=== PATIENT | female | born 1965 | race Caucasian/White ===

== ENCOUNTER → 2016-12-24 | Outpatient (CLI) | payer BC ==
[~2016-12-24] MED LIST: AMOXIL500 M1 PO; CATAFLAM50 MG PO; FLEXERIL5 MG PO; FLOMAX0.4 MG PO; HYDROCODONE BIT1 T11 PO; MOTRIN800 MG PO; PRILOSEC20 MG PO; PYRIDIUM200 MG PO; SYNTHROID,LEV150 MCG PO; VICODIN 5/500 505 MG PO
[2016-12-24 19:42] LABS: BASO # 0.1 10*3/uL (0.0-0.1); EOS # 0.2 10*3/uL (0.0-0.4); EOS % 3.7 % (1.0-4.0); HEMATOCRIT 32.4 % (37.0-47.0); HEMOGLOBIN 9.4 g/dl (12.0-16.0); LYMPH # 1.4 10*3/uL (1.3-4.4); LYMPH % 29.2 % (27.0-41.0); MEAN CELL VOLUME 89.8 fl (81.0-99.0); MEAN PLATELET VOLUME 10.6 fl (9.6-12.3); MONO # 0.4 10*3/uL (0.1-1.0); MONO % 8.6 % (3.0-9.0); NEUT # 2.8 10*3/uL (2.3-7.9); NEUT % 57.3 % (47.0-73.0); PLATELET COUNT AUTOMATED 278 10*3/uL (130-400); RED BLOOD COUNT 3.61 10*6/uL (4.10-5.10); RED CELL DISTRI WIDTH 13.7 % (0-14.5); WHITE BLOOD COUNT 4.9 10*3/uL (4.8-10.8)
[2016-12-24 20:03] LABS: ALBUMIN 3.8 gm/dl (3.1-4.5); ALKALINE PHOSPHATASE 50 U/L (45-117); BILIRUBIN, TOTAL 0.2 mg/dl (0.2-1.0); BUN 14 mg/dl (7-24); CARBON DIOXIDE 31 mmol/L (21-32); CHLORIDE 108 mmol/L (98-107); EST GLOM FILT AFRICAN AMERICAN > 60 ml/min; GLUCOSE 103 mg/dL (65-99); IRON 21 ug/dL (50-170); IRON SATURATION 5 %; POTASSIUM 4.3 mmol/L (3.5-5.1); SGOT/AST 11 IU/L (3-35); SGPT/ALT 10 U/L (12-78); SODIUM 143 mmol/L (136-145); TOTAL PROTEIN 7.5 gm/dL (6.4-8.2); UIBC 388 ug/dL (110-365)
[2016-12-24 20:19] LABS: FERRITIN 2.9 ng/mL (10.0-291.0)
== END | disposition home or self-care (01) ==
LOC: LAB 17:54
PROVIDERS: Family Medicine
DX: D64.9 Anemia, unspecified (principal); E03.9 Hypothyroidism, unspecified; E61.1 Iron deficiency

== ENCOUNTER → 2017-01-11 | Outpatient (CLI) | payer BC | END | disposition home or self-care (01) | LOC: MAMMO 13:46 | DX: Z12.31 Encounter for screening mammogram for malignant neoplasm of breast (principal) ==

== ENCOUNTER → 2019-11-30 | Outpatient (CLI) | payer SELFPAY | END | disposition home or self-care (01) | LOC: LAB 09:22 → RESCLI 09:22 | DX: U07.1 COVID-19 (principal); J32.9 Chronic sinusitis, unspecified ==

== ENCOUNTER 2020-03-04 19:24 | Emergency (ER) | payer OTHER ==
[~2020-03-04] VITALS: Wt 68.0 kg
[2020-03-04 21:17] VITALS: BP 124/77
== END 2020-03-05 00:38 | disposition home or self-care (01) ==
LOC: ED 19:24
DX: S82.434A Nondisplaced oblique fracture of shaft of right fibula, initial encounter for closed fracture (principal); Z88.8 Allergy status to other drugs, medicaments and biological substances; Z79.899 Other long term (current) drug therapy; X50.1XXA Overexertion from prolonged static or awkward postures, initial encounter; Y93.89 Activity, other specified; Y92.89 Other specified places as the place of occurrence of the external cause; Y99.8 Other external cause status

== ENCOUNTER → 2020-03-10 | Outpatient (CLI) | payer OTHER | END | disposition home or self-care (01) | LOC: CT 14:00 | DX: M76.61 Achilles tendinitis, right leg (principal); R60.0 Localized edema ==

== ENCOUNTER → 2020-04-14 | Outpatient (CLI) | payer OTHER | END | disposition home or self-care (01) | LOC: MRI 13:00 | DX: S96.811A Strain of other specified muscles and tendons at ankle and foot level, right foot, initial encounter (principal); M25.371 Other instability, right ankle; M71.571 Other bursitis, not elsewhere classified, right ankle and foot; X58.XXXA Exposure to other specified factors, initial encounter; Y93.89 Activity, other specified; Y92.89 Other specified places as the place of occurrence of the external cause; Y99.8 Other external cause status ==

== ENCOUNTER → 2020-09-10 | Outpatient (CLI) | payer OTHER ==
[~2020-09-10] MED LIST changes: +COLACE100 MG PO; +MIGRANOW KIT50 MG PO; +PERCOCET 5-3251 EACH PO; +ZOFRAN4 MG PO
[2020-09-10 13:24] LABS: EOS # 0.2 10*3/uL (0.0-0.4); EOS % 3.6 % (1.0-4.0); HEMATOCRIT 38.9 % (37.0-47.0); LYMPH # 1.3 10*3/uL (1.3-4.4); LYMPH % 31.4 % (27.0-41.0); MEAN CELL VOLUME 94.6 fl (81.0-99.0); MEAN CORPUSCULAR HGB 29.9 pg (27.0-31.0); MEAN CORPUSCULAR HGB CONC 31.6 g/dl (33.0-37.0); MEAN PLATELET VOLUME 10.1 fl (9.6-12.3); MONO # 0.4 10*3/uL (0.1-1.0); MONO % 9.7 % (3.0-9.0); NEUT # 2.2 10*3/uL (2.3-7.9); NEUT % 53.8 % (47.0-73.0); PLATELET COUNT AUTOMATED 172 10*3/uL (130-400); RED BLOOD COUNT 4.11 10*6/uL (4.10-5.10); RED CELL DISTRI WIDTH 11.9 % (0-14.5); WHITE BLOOD COUNT 4.1 10*3/uL (4.8-10.8)
[2020-09-10 14:02] LABS: ALBUMIN 3.7 gm/dl (3.1-4.5); ALKALINE PHOSPHATASE 55 U/L (45-117); BUN 15 mg/dl (7-24); CHLORIDE 109 mmol/L (98-107); CHOLESTEROL 203 mg/dL (<200); CREATININE 0.63 mg/dL (0.55-1.02); HDL CHOLESTEROL 73 mg/dl (40-60); IRON 78 ug/dL (50-170); LDL CHOLESTEROL 116 mg/dL (9-159); POTASSIUM 4.1 mmol/L (3.5-5.1); SGOT/AST 12 IU/L (3-35); SGPT/ALT 16 U/L (12-78); SODIUM 142 mmol/L (136-145); TOTAL IRON BINDING CAPACITY 369 ug/dl (250-450); TOTAL PROTEIN 7.5 gm/dL (6.4-8.2); TRIGLYCERIDES 71 mg/dl (<150); VLDL CHOLESTEROL 14 mg/dL (6-40)
[2020-09-10 14:21] LABS: FREE T4 1.49 ng/dl (0.76-1.46)
[2020-09-10 14:34] LABS: FERRITIN 9.2 ng/mL (10.0-291.0); VITAMIN D, 25-HYDROXY 16.6 ng/mL (30-100)
== END | disposition home or self-care (01) ==
LOC: LAB 13:07
PROVIDERS: ATTEND Family Medicine
DX: Z13.220 Encounter for screening for lipoid disorders (principal); E03.9 Hypothyroidism, unspecified; E53.8 Deficiency of other specified B group vitamins; E55.9 Vitamin D deficiency, unspecified; E61.1 Iron deficiency; G47.30 Sleep apnea, unspecified; Z13.1 Encounter for screening for diabetes mellitus

== ENCOUNTER → 2020-09-25 | Outpatient (CLI) | payer OTHER | END | disposition home or self-care (01) | LOC: MAMMO 01:31 | PROVIDERS: ATTEND Family Medicine | DX: Z12.31 Encounter for screening mammogram for malignant neoplasm of breast (principal); R92.8 Other abnormal and inconclusive findings on diagnostic imaging of breast ==

== ENCOUNTER → 2020-11-03 | Outpatient (CLI) | payer OTHER | END | disposition home or self-care (01) | LOC: COVID19 14:45 | PROVIDERS: ATTEND Surgery | DX: Z01.812 Encounter for preprocedural laboratory examination (principal); Z20.822 Contact with and (suspected) exposure to COVID-19 ==

== ENCOUNTER → 2020-11-07 | Day surgery (SDC) | payer OTHER ==
[2020-11-03 14:03] VITALS: BP 105/61
[~2020-11-07] VITALS: Ht 157.4 cm; Wt 72.6 kg
[2020-11-07 07:15] VITALS: BP 112/70
[2020-11-07 09:07] VITALS: BP 136/65
[2020-11-07 09:22] VITALS: BP 134/62
[2020-11-07 09:37] VITALS: BP 147/66
[2020-11-07 09:52] VITALS: BP 118/37
[2020-11-07 10:07] VITALS: BP 114/62
== END ==
LOC: SDC 11-03 14:00
PROVIDERS: ATTEND Surgery
DX: K43.2 Incisional hernia without obstruction or gangrene (principal); G43.909 Migraine, unspecified, not intractable, without status migrainosus; Z79.899 Other long term (current) drug therapy

== ENCOUNTER → 2020-11-19 | Outpatient (CLI) | payer OTHER | END | disposition home or self-care (01) | LOC: CT 14:24 | PROVIDERS: ATTEND Surgery | DX: N20.0 Calculus of kidney (principal); K44.9 Diaphragmatic hernia without obstruction or gangrene; R18.8 Other ascites; Z98.890 Other specified postprocedural states ==

== ENCOUNTER → 2021-02-10 | Outpatient (CLI) | payer OTHER | END | disposition home or self-care (01) | LOC: LAB 12:00 | PROVIDERS: ATTEND Family Medicine | DX: E03.9 Hypothyroidism, unspecified (principal) ==

== ENCOUNTER 2021-12-02 22:24 | Emergency (ER) | payer OTHER ==
[~2021-12-02] VITALS: Ht 157.4 cm; Wt 72.6 kg
[2021-12-02 23:08] LABS: BILIRUBIN Negative (Negative); BLOOD 3+ (Negative); CLARITY Cloudy (Clear); COLOR Orange (Yellow); GLUCOSE Negative (Negative); KETONE Trace (Negative); LEUKO ESTERASE 1+ (Negative); NITRITE Negative (Negative); PH 5.5 (4.5-8.0)
[2021-12-02 23:15] LABS: BASO % 0.7 % (0.0-1.0); EOS # 0.1 10*3/uL (0.0-0.4); EOS % 1.9 % (1.0-4.0); HEMATOCRIT 39.4 % (37.0-47.0); LYMPH # 1.5 10*3/uL (1.3-4.4); LYMPH % 25.5 % (27.0-41.0); MEAN CELL VOLUME 92.3 fl (81.0-99.0); MEAN CORPUSCULAR HGB CONC 32.5 g/dl (33.0-37.0); MEAN PLATELET VOLUME 9.9 fl (9.6-12.3); MONO # 0.5 10*3/uL (0.1-1.0); NEUT # 3.6 10*3/uL (2.3-7.9); NEUT % 62.7 % (47.0-73.0); PLATELET COUNT AUTOMATED 227 10*3/uL (130-400); RED BLOOD COUNT 4.27 10*6/uL (4.10-5.10); RED CELL DISTRI WIDTH 11.9 % (0-14.5); WHITE BLOOD COUNT 5.7 10*3/uL (4.8-10.8)
[2021-12-02 23:35] LABS: ALKALINE PHOSPHATASE 58 U/L (45-117); BUN 15 mg/dl (7-24); CHLORIDE 108 mmol/L (98-107); CREATININE 0.77 mg/dL (0.55-1.02); LIPASE 121 U/L (73-393); POTASSIUM 3.6 mmol/L (3.5-5.1); SGOT/AST 15 IU/L (3-35); SGPT/ALT 16 U/L (12-78); SODIUM 142 mmol/L (136-145); TOTAL PROTEIN 7.5 gm/dL (6.4-8.2)
[2021-12-02 23:39] LABS: BACTERIA TRACE; RBC TNTC rbc/hpf (0-2); WBC 16-20 wbc/hpf (0-5)
[2021-12-03 05:28] VITALS: BP 105/54
== END 2021-12-03 08:00 | disposition short-term general hospital (02) ==
LOC: ED 22:24
PROVIDERS: Emergency Medicine
DX: N39.0 Urinary tract infection, site not specified (principal); N13.2 Hydronephrosis with renal and ureteral calculous obstruction; Z88.8 Allergy status to other drugs, medicaments and biological substances; Z79.899 Other long term (current) drug therapy; Z90.89 Acquired absence of other organs

== ENCOUNTER → 2021-12-28 | Outpatient (CLI) | payer OTHER ==
[2021-12-28 18:55] LABS: BASO % 0.8 % (0.0-1.0); EOS # 0.2 10*3/uL (0.0-0.4); EOS % 3.1 % (1.0-4.0); HEMATOCRIT 39.2 % (37.0-47.0); LYMPH # 1.7 10*3/uL (1.3-4.4); LYMPH % 35.7 % (27.0-41.0); MEAN CELL VOLUME 93.8 fl (81.0-99.0); MEAN CORPUSCULAR HGB 29.9 pg (27.0-31.0); MEAN CORPUSCULAR HGB CONC 31.9 g/dl (33.0-37.0); MEAN PLATELET VOLUME 9.6 fl (9.6-12.3); MONO # 0.4 10*3/uL (0.1-1.0); MONO % 8.1 % (3.0-9.0); NEUT # 2.5 10*3/uL (2.3-7.9); NEUT % 52.1 % (47.0-73.0); PLATELET COUNT AUTOMATED 203 10*3/uL (130-400); RED BLOOD COUNT 4.18 10*6/uL (4.10-5.10); WHITE BLOOD COUNT 4.8 10*3/uL (4.8-10.8)
[2021-12-28 19:13] LABS: ALKALINE PHOSPHATASE 58 U/L (45-117); BUN 14 mg/dl (7-24); CHLORIDE 106 mmol/L (98-107); CREATININE 0.67 mg/dL (0.55-1.02); POTASSIUM 4.2 mmol/L (3.5-5.1); SGOT/AST 10 IU/L (3-35); SGPT/ALT 9 U/L (12-78); SODIUM 141 mmol/L (136-145); THYROXINE (T4) TOTAL 16.1 ug/dl (4.8-13.9); TOTAL PROTEIN 7.6 gm/dL (6.4-8.2)
[2021-12-28 19:16] LABS: T3 UPTAKE 36 % (31-39)
[2021-12-28 20:46] LABS: BILIRUBIN Negative (Negative); BLOOD 2+ (Negative); CLARITY Clear (Clear); COLOR Yellow (Yellow); GLUCOSE Negative (Negative); KETONE Trace (Negative); LEUKO ESTERASE Trace (Negative); NITRITE Negative (Negative); SPECIFIC GRAVITY 1.025 (1.001-1.030)
[2021-12-28 21:22] LABS: BACTERIA 1+; CALCIUM OXALATE CRYSTALS 2+; EPITHELIAL CELLS 21-30; MUCOUS TRACE
== END | disposition home or self-care (01) ==
LOC: LAB 17:05
PROVIDERS: ATTEND Urology
DX: N20.0 Calculus of kidney (principal); R31.9 Hematuria, unspecified

== ENCOUNTER → 2021-12-31 | Outpatient (CLI) | payer OTHER | END | disposition home or self-care (01) | LOC: LAB 18:32 | PROVIDERS: ATTEND Family Medicine | DX: E03.9 Hypothyroidism, unspecified (principal) ==

== ENCOUNTER → 2022-01-07 | Outpatient (CLI) | payer OTHER | LOC: US 01:08 | PROVIDERS: ATTEND Urology | DX: N20.0 Calculus of kidney (principal); K80.20 Calculus of gallbladder without cholecystitis without obstruction ==

== ENCOUNTER → 2022-07-28 | Outpatient (CLI) | payer OTHER | END | disposition home or self-care (01) | LOC: MAMMO 01:17 | PROVIDERS: ATTEND Family Medicine | DX: Z12.31 Encounter for screening mammogram for malignant neoplasm of breast (principal) ==

== ENCOUNTER → 2022-10-19 | Outpatient (CLI) | payer OTHER | END | disposition home or self-care (01) | LOC: LAB 10:39 | PROVIDERS: ATTEND Family Medicine | DX: E03.9 Hypothyroidism, unspecified (principal) ==

== ENCOUNTER 2023-01-10 14:27 | Emergency (ER) | payer OTHER ==
[~2023-01-10] VITALS: Ht 160 cm; Wt 72.6 kg
[2023-01-10 14:36] VITALS: BP 128/65
[2023-01-10 16:09] LABS: BASO % 0.7 % (0.0-1.0); EOS # 0.1 10*3/uL (0.0-0.4); HEMATOCRIT 39.8 % (37.0-47.0); LYMPH # 1.5 10*3/uL (1.3-4.4); LYMPH % 33.9 % (27.0-41.0); MEAN CELL VOLUME 93.6 fl (81.0-99.0); MEAN CORPUSCULAR HGB 31.1 pg (27.0-31.0); MEAN CORPUSCULAR HGB CONC 33.2 g/dl (33.0-37.0); MEAN PLATELET VOLUME 9.8 fl (9.6-12.3); MONO # 0.4 10*3/uL (0.1-1.0); MONO % 9.4 % (3.0-9.0); NEUT # 2.4 10*3/uL (2.3-7.9); NEUT % 53.8 % (47.0-73.0); PLATELET COUNT AUTOMATED 181 10*3/uL (130-400); RED BLOOD COUNT 4.25 10*6/uL (4.10-5.10); RED CELL DISTRI WIDTH 11.9 % (0-14.5); WHITE BLOOD COUNT 4.5 10*3/uL (4.8-10.8)
[2023-01-10 16:17] LABS: BILIRUBIN Negative (Negative); BLOOD 1+ (Negative); CLARITY Cloudy (Clear); COLOR Yellow (Yellow); GLUCOSE Negative (Negative); KETONE 1+ (Negative); LEUKO ESTERASE 1+ (Negative); NITRITE Negative (Negative); SPECIFIC GRAVITY >= 1.030 (1.001-1.030)
[2023-01-10 16:31] LABS: ALKALINE PHOSPHATASE 61 U/L (46-116); BUN 15 mg/dl (9-23); CHLORIDE 106 mmol/L (98-107); POTASSIUM 3.4 mmol/L (3.4-5.1); SGPT/ALT 25 U/L (10-49); TOTAL PROTEIN 7.5 gm/dL (6.0-8.0)
[2023-01-10 16:31] LABS: BACTERIA 1+; CALCIUM OXALATE CRYSTALS 2+; MUCOUS 1+
[2023-01-10] MEDS ORDERED: CEPHALEXIN500 M1 PO (17:15)
== END 2023-01-10 17:39 | disposition home or self-care (01) ==
LOC: ED 14:27
PROVIDERS: Nurse Practitioner Family
DX: N39.0 Urinary tract infection, site not specified (principal); N20.0 Calculus of kidney; Z88.8 Allergy status to other drugs, medicaments and biological substances; Z79.899 Other long term (current) drug therapy; Z90.89 Acquired absence of other organs

== ENCOUNTER → 2023-02-04 | Outpatient (CLI) | payer OTHER ==
[~2023-02-04] MED LIST changes: +CEPHALEXIN500 M1 PO
[2023-02-04 08:49] LABS: EOS # 0.1 10*3/uL (0.0-0.4); EOS % 3.7 % (1.0-4.0); HEMATOCRIT 39.4 % (37.0-47.0); LYMPH # 1.3 10*3/uL (1.3-4.4); LYMPH % 34.5 % (27.0-41.0); MEAN CELL VOLUME 94.9 fl (81.0-99.0); MEAN CORPUSCULAR HGB 31.3 pg (27.0-31.0); MEAN PLATELET VOLUME 9.4 fl (9.6-12.3); MONO # 0.4 10*3/uL (0.1-1.0); MONO % 9.4 % (3.0-9.0); NEUT % 51.1 % (47.0-73.0); PLATELET COUNT AUTOMATED 159 10*3/uL (130-400); RED BLOOD COUNT 4.15 10*6/uL (4.10-5.10); RED CELL DISTRI WIDTH 11.8 % (0-14.5); WHITE BLOOD COUNT 3.8 10*3/uL (4.8-10.8)
[2023-02-04 09:19] LABS: ALKALINE PHOSPHATASE 74 U/L (46-116); BUN 8 mg/dl (9-23); CHLORIDE 103 mmol/L (98-107); POTASSIUM 4.4 mmol/L (3.4-5.1); SGPT/ALT 12 U/L (10-49)
== END | disposition home or self-care (01) ==
LOC: LAB 07:56 → US 08:00
PROVIDERS: ATTEND Urology
DX: N20.0 Calculus of kidney (principal); N39.0 Urinary tract infection, site not specified; N13.30 Unspecified hydronephrosis

== ENCOUNTER → 2023-04-28 | Outpatient (CLI) | payer OTHER | END | disposition home or self-care (01) | LOC: RAD 14:18 | PROVIDERS: ATTEND Nurse Practitioner Family | DX: R30.0 Dysuria (principal); Z87.442 Personal history of urinary calculi ==

== ENCOUNTER → 2023-06-03 | Outpatient (CLI) | payer OTHER ==
[2023-06-03 08:44] LABS: BASO # 0.1 10*3/uL (0.0-0.1); BASO % 1.2 % (0.0-1.0); EOS # 0.1 10*3/uL (0.0-0.4); EOS % 2.5 % (1.0-4.0); HEMATOCRIT 40.7 % (37.0-47.0); LYMPH # 1.4 10*3/uL (1.3-4.4); LYMPH % 34.3 % (27.0-41.0); MEAN CELL VOLUME 95.5 fl (81.0-99.0); MEAN CORPUSCULAR HGB 30.8 pg (27.0-31.0); MEAN CORPUSCULAR HGB CONC 32.2 g/dl (33.0-37.0); MEAN PLATELET VOLUME 9.9 fl (9.6-12.3); MONO # 0.3 10*3/uL (0.1-1.0); MONO % 7.9 % (3.0-9.0); NEUT # 2.2 10*3/uL (2.3-7.9); NEUT % 53.9 % (47.0-73.0); PLATELET COUNT AUTOMATED 192 10*3/uL (130-400); RED BLOOD COUNT 4.26 10*6/uL (4.10-5.10); RED CELL DISTRI WIDTH 11.9 % (0-14.5); WHITE BLOOD COUNT 4.1 10*3/uL (4.8-10.8)
[2023-06-03 08:58] LABS: ALKALINE PHOSPHATASE 56 U/L (46-116); BUN 11 mg/dl (9-23); CHLORIDE 105 mmol/L (98-107); CHOLESTEROL 162 mg/dL (<200); LDL CHOLESTEROL 93 mg/dL (9-159); POTASSIUM 4.2 mmol/L (3.4-5.1); TOTAL PROTEIN 7.5 gm/dL (6.0-8.0); TRIGLYCERIDES 52 mg/dl (<150)
[2023-06-03 08:59] LABS: SGPT/ALT < 7 U/L (10-49)
== END | disposition home or self-care (01) ==
LOC: LAB 08:37
PROVIDERS: ATTEND Nurse Practitioner Family
DX: Z12.31 Encounter for screening mammogram for malignant neoplasm of breast (principal); Z12.4 Encounter for screening for malignant neoplasm of cervix; Z00.00 Encounter for general adult medical examination without abnormal findings; Z23 Encounter for immunization; F41.9 Anxiety disorder, unspecified; F32.A Depression, unspecified

== ENCOUNTER → 2023-08-16 | Outpatient (CLI) | payer OTHER | END | disposition home or self-care (01) | LOC: RAD 14:52 | PROVIDERS: ATTEND Chiropractor | DX: M43.8X8 Other specified deforming dorsopathies, sacral and sacrococcygeal region (principal); M54.50 Low back pain, unspecified; M53.3 Sacrococcygeal disorders, not elsewhere classified; M47.898 Other spondylosis, sacral and sacrococcygeal region ==

== ENCOUNTER 2024-07-27 16:14 | Emergency (ER) | payer OTHER ==
[~2024-07-27] VITALS: Ht 160 cm; Wt 74.8 kg
[2024-07-27 16:26] VITALS: BP 117/70
[2024-07-27 16:59] LABS: BASO % 0.5 % (0.0-1.0); EOS # 0.1 10*3/uL (0.0-0.4); MEAN CELL VOLUME 94.4 fl (81.0-99.0); MEAN CORPUSCULAR HGB 30.4 pg (27.0-31.0); MEAN CORPUSCULAR HGB CONC 32.2 g/dl (33.0-37.0); MEAN PLATELET VOLUME 9.7 fl (9.6-12.3); MONO # 0.6 10*3/uL (0.1-1.0); MONO % 9.2 % (3.0-9.0); NEUT # 4.5 10*3/uL (2.3-7.9); NEUT % 70.6 % (47.0-73.0); PLATELET COUNT AUTOMATED 165 10*3/uL (130-400); RED BLOOD COUNT 3.92 10*6/uL (4.10-5.10); RED CELL DISTRI WIDTH 11.9 % (0-14.5); WHITE BLOOD COUNT 6.4 10*3/uL (4.8-10.8)
[2024-07-27 17:13] LABS: BUN 12 mg/dl (9-23); CHLORIDE 108 mmol/L (98-107); POTASSIUM 3.4 mmol/L (3.4-5.1)
[2024-07-27] MEDS ORDERED: Amoxicillin/Clavulanate Pota 875 MG TAB PO ONE (17:15)
[2024-07-27] MEDS ORDERED: AMOX-CLAV 875-1 EACH PO (17:15)
== END 2024-07-27 17:26 | disposition home or self-care (01) ==
LOC: ED 16:14
PROVIDERS: Nurse Practitioner Family
DX: J32.9 Chronic sinusitis, unspecified (principal); Z20.822 Contact with and (suspected) exposure to COVID-19; F17.290 Nicotine dependence, other tobacco product, uncomplicated; Z87.442 Personal history of urinary calculi; Z88.8 Allergy status to other drugs, medicaments and biological substances; Z98.890 Other specified postprocedural states

== ENCOUNTER 2024-09-26 07:40 | Inpatient (IN) | payer OTHER ==
[~2024-09-26] VITALS: Ht 157.4 cm; Wt 81.3 kg
[2024-09-26] VITALS (11 sets, daily range): BP systolic 103–154; BP diastolic 56–95
[~2024-09-26 07:40] MED LIST changes: +AMOX-CLAV 875-1 EACH PO
[2024-09-26] MEDS ORDERED: Ondansetron Hydrochloride 4 MG/2 ML VIAL IV ONE (07:50)
[2024-09-26] MEDS ORDERED: SODIUM CHLORIDE 0.9% 500 ML IV ONE (07:50)
[2024-09-26] MEDS ORDERED: fentaNYL CITRATE 100 MCG/2 ML VIAL IV ONE (07:55)
[2024-09-26 08:07] LABS: BASO # 0.1 10*3/uL (0.0-0.1); BASO % 0.5 % (0.0-1.0); EOS % 0.1 % (1.0-4.0); HEMATOCRIT 41.3 % (37.0-47.0); MEAN CELL VOLUME 94.7 fl (81.0-99.0); MEAN CORPUSCULAR HGB 30.3 pg (27.0-31.0); MEAN PLATELET VOLUME 9.8 fl (9.6-12.3); MONO # 0.4 10*3/uL (0.1-1.0); MONO % 3.8 % (3.0-9.0); NEUT # 8.2 10*3/uL (2.3-7.9); NEUT % 82.7 % (47.0-73.0); PLATELET COUNT AUTOMATED 218 10*3/uL (130-400); RED BLOOD COUNT 4.36 10*6/uL (4.10-5.10); RED CELL DISTRI WIDTH 11.8 % (0-14.5); WHITE BLOOD COUNT 9.9 10*3/uL (4.8-10.8)
[2024-09-26 08:29] LABS: ALKALINE PHOSPHATASE 62 U/L (46-116); BUN 11 mg/dl (9-23); CHLORIDE 106 mmol/L (98-107); POTASSIUM 3.8 mmol/L (3.4-5.1)
[2024-09-26 08:39] LABS: SGPT/ALT < 7 U/L (5-49)
[2024-09-26] MEDS ORDERED: HYDROmorphONE Hydrochloride 0.5 MG/0.5 ML SYRINGE IV ONE (08:55)
[2024-09-26 09:17] LABS: BILIRUBIN Negative (Negative); BLOOD Trace-Lysed (Negative); CLARITY Cloudy (Clear); COLOR Yellow (Yellow); GLUCOSE Negative (Negative); KETONE 2+ (Negative); LEUKO ESTERASE Negative (Negative); NITRITE Negative (Negative); UROBILINOGEN 0.2 E.U./dl (0.0-1.0)
[2024-09-26 09:23] LABS: PH >= 9.0 (4.5-8.0)
[2024-09-26 09:39] LABS: BACTERIA 2+; RBC 21-30 rbc/hpf (0-2)
[2024-09-26] MEDS ORDERED: Piperacillin Sodium/Tazobact 50 ML IV ONE (10:55)
[2024-09-26] MEDS ORDERED: MORPHINE Sulfate 2 MG/ML SYR IV PRN (11:20)
[2024-09-26] MEDS ORDERED: Ondansetron Hydrochloride 4 MG/2 ML VIAL IV PRN (11:20)
[2024-09-26] MEDS ORDERED: SODIUM CHLORIDE 0.9% 1,000 ML IV ONE ×2 (11:25→15:34)
[2024-09-26] MEDS ORDERED: LEVOTHYROXINE150 MCG PO (11:53)
[2024-09-26] MEDS ORDERED: SUMATRIPTAN SUC50 M1 PO (11:54)
[2024-09-26] MEDS ORDERED: HYDROmorphONE Hydrochloride 0.5 MG/0.5 ML SYRINGE IV PRN (12:50)
[2024-09-26] MEDS ORDERED: Pantoprazole Sodium 40 MG IV ONE (14:00)
[2024-09-26] MEDS ORDERED: Pantoprazole Sodium 40 MG VIAL IV SCH (14:00)
[2024-09-26] MEDS ORDERED: Scopolamine 1 PATCH PATCH T ONE ×2 (15:00→15:16)
[2024-09-26] MEDS ORDERED: BUPIVACAINE 0.5% 30 ML IV ONE (15:51)
[2024-09-26] MEDS ORDERED: ACETAMINOPHEN 100 ML IV ONE (16:03)
[2024-09-26] MEDS ORDERED: Acetaminophen/Oxycodone 5 MG/325 MG TABLET PO PRN (17:40)
[2024-09-26] MEDS ORDERED: LEXAPRO10 MG PO (17:52)
[2024-09-26] MEDS ORDERED: DEXTROSE 10 % IN WATER 250 ML IV PRN (18:00)
[2024-09-26] MEDS ORDERED: Piperacillin Sodium/Tazobact 50 ML IV SCH (18:00)
[2024-09-26] MEDS ORDERED: HYDROmorphONE Hydrochloride 1 ML IV ONE (18:08)
[2024-09-26] MEDS ORDERED: INSULIN LISPRO 1 UNIT/0.01 ML SQ SCH (22:00)
[2024-09-27] VITALS: BP 128/64
[2024-09-27] MEDS ORDERED: Levothyroxine Sodium 150 MCG TAB PO SCH (06:00)
[2024-09-27 06:56] LABS: BASO % 0.1 % (0.0-1.0); EOS % 0.1 % (1.0-4.0); HEMATOCRIT 35.2 % (37.0-47.0); MEAN CORPUSCULAR HGB 30.9 pg (27.0-31.0); MEAN PLATELET VOLUME 10.1 fl (9.6-12.3); MONO # 0.8 10*3/uL (0.1-1.0); MONO % 9.6 % (3.0-9.0); NEUT # 6.3 10*3/uL (2.3-7.9); NEUT % 77.3 % (47.0-73.0); PLATELET COUNT AUTOMATED 175 10*3/uL (130-400); RED BLOOD COUNT 3.53 10*6/uL (4.10-5.10); RED CELL DISTRI WIDTH 12.2 % (0-14.5); WHITE BLOOD COUNT 8.2 10*3/uL (4.8-10.8)
[2024-09-27 06:57] LABS: MEAN CELL VOLUME 99.7 fl (81.0-99.0)
[2024-09-27 07:01] LABS: BUN 9 mg/dl (9-23); CHLORIDE 107 mmol/L (98-107); CHOLESTEROL 149 mg/dL (<200); FREE T4 1.44 ng/dl (0.89-1.76); LDL CHOLESTEROL 84 mg/dL (9-159); POTASSIUM 4.1 mmol/L (3.4-5.1); TRIGLYCERIDES 55 mg/dl (<150)
[2024-09-27] MEDS ORDERED: COLACE100 MG PO (07:49)
[2024-09-27] MEDS ORDERED: Ondansetron4 MG PO (07:49)
[2024-09-27] MEDS ORDERED: PERCOCET 5-3251 EACH PO (07:49)
[2024-09-27 08:00] VITALS: BP 90/60
[2024-09-27 08:20] LABS: VITAMIN D, 25-HYDROXY 26.3 ng/mL (30-100)
[2024-09-27] MEDS ORDERED: Ketorolac Tromethamine 30 MG/ML VIAL IV ONE ×2 (09:07→10:55)
[2024-09-27] MEDS ORDERED: Midazolam Hydrochloride 2 MG/2 ML VIAL IV ONE (09:07)
[2024-09-27] MEDS ORDERED: SUGAMMADEX SODIUM 200 MG/2 ML VIAL IV ONE (09:07)
[2024-09-27] MEDS ORDERED: ROCURONIUM BROMIDE 50 MG/5 ML SYRINGE IV ONE (09:07)
[2024-09-27] MEDS ORDERED: Dexamethasone Sodium Phospha 4 MG/ML VIAL IV ONE (09:07)
[2024-09-27] MEDS ORDERED: fentaNYL CITRATE 100 MCG/2 ML VIAL IV ONE (09:07)
[2024-09-27] MEDS ORDERED: SEVOFLURANE 250 ML BOT INH ONE (09:07)
[2024-09-27] MEDS ORDERED: Lidocaine Hydrochloride 5 ML VIAL IV ONE (09:07)
[2024-09-27] MEDS ORDERED: Ondansetron Hydrochloride 4 MG/2 ML VIAL IV ONE (09:07)
[2024-09-27] MEDS ORDERED: PROPOFOL 200 MG/20 ML VIAL IV ONE (09:07)
[2024-09-27] MEDS ORDERED: Succinylcholine Chloride 200 MG/10 ML SYRINGE IV ONE (09:07)
[2024-09-27] MEDS ORDERED: Pantoprazole Sodium 40 MG IV SCH (10:00)
[2024-09-27] MEDS ORDERED: ESCITALOPRAM OXALATE 10 MG TAB PO SCH (10:00)
[2024-09-27] MEDS ORDERED: Ketorolac Tromethamine 15 MG/ML VIAL IV ONE (10:30)
[2024-09-27 12:00] VITALS: BP 95/52
[2024-09-27] MEDS ORDERED: SODIUM CHLORIDE 0.9% 1,000 ML IV ONE (12:50)
[2024-09-27 16:00] VITALS: BP 99/47
[2024-09-27 20:00] VITALS: BP 106/51
[2024-09-27] MEDS ORDERED: ACETAMINOPHEN 325 MG TAB PO PRN (20:35)
[2024-09-28] VITALS: BP 94/52
[2024-09-28 05:03] VITALS: BP 109/50
[2024-09-28 06:06] LABS: BUN 9 mg/dl (9-23); CHLORIDE 107 mmol/L (98-107); POTASSIUM 4.1 mmol/L (3.4-5.1)
[2024-09-28 06:15] LABS: BASO % 0.4 % (0.0-1.0); EOS # 0.1 10*3/uL (0.0-0.4); EOS % 1.9 % (1.0-4.0); HEMATOCRIT 33.3 % (37.0-47.0); MEAN CELL VOLUME 99.1 fl (81.0-99.0); MEAN CORPUSCULAR HGB 30.4 pg (27.0-31.0); MEAN CORPUSCULAR HGB CONC 30.6 g/dl (33.0-37.0); MEAN PLATELET VOLUME 10.6 fl (9.6-12.3); MONO # 0.9 10*3/uL (0.1-1.0); MONO % 12.5 % (3.0-9.0); NEUT # 4.6 10*3/uL (2.3-7.9); NEUT % 68.2 % (47.0-73.0); PLATELET COUNT AUTOMATED 144 10*3/uL (130-400); RED BLOOD COUNT 3.36 10*6/uL (4.10-5.10); RED CELL DISTRI WIDTH 12.3 % (0-14.5); WHITE BLOOD COUNT 6.8 10*3/uL (4.8-10.8)
[2024-09-28 08:00] VITALS: BP 105/60
[2024-09-28] MEDS ORDERED: BISACODYL 5 MG TAB PO PRN (09:25)
[2024-09-28] MEDS ORDERED: BISACODYL 10 MG SUPP R ONE (09:25)
[2024-09-28 12:00] VITALS: BP 96/43
[2024-09-28 16:00] VITALS: BP 126/66
[2024-09-28 20:00] VITALS: BP 119/65
[2024-09-29] VITALS: BP 129/70
[2024-09-29 06:45] LABS: BASO % 0.6 % (0.0-1.0); EOS # 0.2 10*3/uL (0.0-0.4); EOS % 2.3 % (1.0-4.0); HEMATOCRIT 33.2 % (37.0-47.0); MEAN CELL VOLUME 97.6 fl (81.0-99.0); MEAN CORPUSCULAR HGB 30.6 pg (27.0-31.0); MEAN CORPUSCULAR HGB CONC 31.3 g/dl (33.0-37.0); MEAN PLATELET VOLUME 10.1 fl (9.6-12.3); MONO # 0.6 10*3/uL (0.1-1.0); MONO % 9.6 % (3.0-9.0); NEUT # 4.2 10*3/uL (2.3-7.9); NEUT % 65.1 % (47.0-73.0); PLATELET COUNT AUTOMATED 164 10*3/uL (130-400); RED CELL DISTRI WIDTH 11.9 % (0-14.5); WHITE BLOOD COUNT 6.5 10*3/uL (4.8-10.8)
[2024-09-29 06:46] LABS: ALKALINE PHOSPHATASE 80 U/L (46-116); BUN 5 mg/dl (9-23); CHLORIDE 107 mmol/L (98-107); POTASSIUM 3.6 mmol/L (3.4-5.1); SGPT/ALT 62 U/L (5-49)
[2024-09-29 08:00] VITALS: BP 112/66
[2024-09-29] MEDS ORDERED: AMOX-CLAV 875-1 EACH PO (11:02)
== END 2024-09-29 12:30 | disposition home or self-care (01) | DRG 418 ==
LOC: ED 07:40 → 4E 11:04 → EDHOLD 11:04 → 4E 14:14
PROVIDERS: Internal Medicine; Student in an Organized Health Care Education/Training Program; ADMIT Internal Medicine; ATTEND Internal Medicine
PROC: 0FT44ZZ Resection of Gallbladder, Percutaneous Endoscopic Approach (ICD-10-PCS; principal; 2024-09-26)
PROC: 0DNU4ZZ Release Omentum, Percutaneous Endoscopic Approach (ICD-10-PCS; 2024-09-26)
DX: K81.0 Acute cholecystitis (principal); F33.9 Major depressive disorder, recurrent, unspecified; N30.01 Acute cystitis with hematuria; N06.9 Isolated proteinuria with unspecified morphologic lesion; G43.909 Migraine, unspecified, not intractable, without status migrainosus; J30.2 Other seasonal allergic rhinitis; F41.9 Anxiety disorder, unspecified; K21.9 Gastro-esophageal reflux disease without esophagitis; E03.9 Hypothyroidism, unspecified; R73.9 Hyperglycemia, unspecified; G89.18 Other acute postprocedural pain; Z88.8 Allergy status to other drugs, medicaments and biological substances; Z87.442 Personal history of urinary calculi; Z82.49 Family history of ischemic heart disease and other diseases of the circulatory system

== ENCOUNTER → 2024-12-11 | Outpatient (CLI) | payer OTHER ==
[~2024-12-11] MED LIST changes: +LEVOTHYROXINE150 MCG PO; +LEXAPRO10 MG PO; +Ondansetron4 MG PO; +SUMATRIPTAN SUC50 M1 PO
[2024-12-11 16:39] LABS: BASO # 0.1 10*3/uL (0.0-0.1); BASO % 0.9 % (0.0-1.0); EOS # 0.1 10*3/uL (0.0-0.4); EOS % 2.5 % (1.0-4.0); HEMATOCRIT 39.9 % (37.0-47.0); MEAN CELL VOLUME 95.7 fl (81.0-99.0); MEAN CORPUSCULAR HGB 30.7 pg (27.0-31.0); MEAN CORPUSCULAR HGB CONC 32.1 g/dl (33.0-37.0); MEAN PLATELET VOLUME 10.2 fl (9.6-12.3); MONO # 0.5 10*3/uL (0.1-1.0); MONO % 9.1 % (3.0-9.0); NEUT # 3.1 10*3/uL (2.3-7.9); NEUT % 57.6 % (47.0-73.0); PLATELET COUNT AUTOMATED 200 10*3/uL (130-400); RED BLOOD COUNT 4.17 10*6/uL (4.10-5.10); RED CELL DISTRI WIDTH 11.9 % (0-14.5); WHITE BLOOD COUNT 5.3 10*3/uL (4.8-10.8)
[2024-12-11 16:53] LABS: ALKALINE PHOSPHATASE 61 U/L (46-116); BUN 16 mg/dl (9-23); CHLORIDE 104 mmol/L (98-107); POTASSIUM 3.8 mmol/L (3.4-5.1); SGPT/ALT < 7 U/L (5-49); TOTAL PROTEIN 7.2 gm/dL (6.0-8.0)
[2024-12-11 17:08] LABS: FREE T4 1.81 ng/dl (0.89-1.76)
== END | disposition home or self-care (01) ==
LOC: LAB 16:05
PROVIDERS: ATTEND Nurse Practitioner Family
DX: E03.9 Hypothyroidism, unspecified (principal); G43.909 Migraine, unspecified, not intractable, without status migrainosus; Z76.89 Persons encountering health services in other specified circumstances

== ENCOUNTER → 2025-01-02 | Outpatient (CLI) | payer OTHER | END | disposition home or self-care (01) | LOC: LAB 14:22 | PROVIDERS: ATTEND Nurse Practitioner Women's Health | DX: R92.30 Dense breasts, unspecified (principal); Z80.3 Family history of malignant neoplasm of breast; Z79.899 Other long term (current) drug therapy ==

== ENCOUNTER → 2025-01-08 | Outpatient (CLI) | payer OTHER | END | disposition home or self-care (01) | LOC: MAMMO 02:16 | PROVIDERS: ATTEND Nurse Practitioner Women's Health | DX: R92.323 Mammographic fibroglandular density, bilateral breasts (principal); Z80.3 Family history of malignant neoplasm of breast ==

== ENCOUNTER → 2025-06-14 | Outpatient (CLI) | payer OTHER | END | disposition home or self-care (01) | LOC: LAB 07:19 | PROVIDERS: ATTEND Nurse Practitioner Family | DX: E03.9 Hypothyroidism, unspecified (principal) ==

== ENCOUNTER → 2025-07-16 | Outpatient (CLI) | payer OTHER ==
[2025-07-16 12:46] LABS: BASO # 0.0 10*3/uL (0.0-0.1); BASO % 0.5 % (0.0-1.0); EOS # 0.1 10*3/uL (0.0-0.4); EOS % 1.2 % (1.0-4.0); MEAN CELL VOLUME 93.8 fl (81.0-99.0); MEAN CORPUSCULAR HGB 30.4 pg (27.0-31.0); MEAN PLATELET VOLUME 9.3 fl (9.6-12.3); MONO # 0.6 10*3/uL (0.1-1.0); MONO % 7.9 % (3.0-9.0); NEUT # 5.2 10*3/uL (2.3-7.9); NEUT % 64.0 % (47.0-73.0); NUCLEATED RED BLOOD CELL 0.0 % (0.0-0.0); NUCLEATED RED BLOOD CELL 0.0 10*3/uL (0.0-0.0); PLATELET COUNT AUTOMATED 202 10*3/uL (130-400); RED CELL DISTRI WIDTH 11.9 % (0-14.5)
[2025-07-16 13:28] LABS: BUN 12 mg/dl (9-23); LDL CHOLESTEROL 93 mg/dL (9-159); SGPT/ALT < 7 U/L (5-49)
[2025-07-16 13:38] LABS: VITAMIN D, 25-HYDROXY 28.2 ng/mL (30-100)
[2025-07-16 13:51] LABS: FREE T4 2.06 ng/dl (0.89-1.76)
== END | disposition home or self-care (01) ==
LOC: LAB 12:23
PROVIDERS: ATTEND Nurse Practitioner Family
DX: Z00.00 Encounter for general adult medical examination without abnormal findings (principal); Z13.220 Encounter for screening for lipoid disorders; Z13.1 Encounter for screening for diabetes mellitus; E03.9 Hypothyroidism, unspecified; G43.909 Migraine, unspecified, not intractable, without status migrainosus; R53.83 Other fatigue